=== PATIENT | female | born 1930 | race Asian ===

== ENCOUNTER 2017-10-30 18:22 | Inpatient (IN) | payer OTHER ==
[2017-10-30] MEDS: KETOROLAC 15 MG INJ IV (18:55)
[2017-10-30] MEDS: morphine 4 MG/ML VIAL IV (18:55)
[2017-10-30] MEDS: ONDANSETRON 4 MG INJ IV ×2 (18:55→21:03)
[2017-10-30] MEDS: LACTATED RINGER'S 1,000 ML IV (18:56)
[2017-10-30 19:19] LABS: ADD MAN DIFF? NO
[2017-10-30 19:24] LABS: BASOPHILS % 0.6 % (0.0-2.0); EOSINOPHILS % 0.3 % (0.0-7.0); HEMATOCRIT 34.9 % (37.0-47.0); HEMOGLOBIN 11.5 g/dl (12.0-16.0); LYMPHOCYTES # 1.6 10^3/ul (0.8-2.9); LYMPHOCYTES % 22.6 % (15.0-51.0); MEAN CORPUSCULAR HEMOGLOBIN 32.1 pg (29.0-33.0); MEAN CORPUSCULAR VOLUME 97.5 fl (82.0-101.0); MEAN PLATELET VOLUME 9.7 fl (7.4-10.4); MONOCYTE # 0.4 10^3/ul (0.3-0.9); MONOCYTES % 5.6 % (0.0-11.0); NEUTROPHIL # 4.9 10^3/ul (1.6-7.5); NEUTROPHILS % 70.8 % (39.0-77.0); PLATELET COUNT 244 10^3/UL (140-415); RED BLOOD COUNT 3.58 10^6/ul (4.20-5.40)
[2017-10-30 19:42] LABS: ALANINE AMINOTRANSFERASE 17 IU/L (13-69); ALBUMIN 4.3 g/dl (3.3-4.9); ALBUMIN/GLOBULIN RATIO 1.26; ALKALINE PHOSPHATASE 83 IU/L (42-121); ANION GAP 15 (8-16); ASPARTATE AMINO TRANSFERASE 31 IU/L (15-46); BILIRUBIN,INDIRECT 0.2 mg/dl (0-1.1); BILIRUBIN,TOTAL 0.2 mg/dl (0.2-1.3); BLOOD UREA NITROGEN 18 mg/dl (7-20); CALCIUM 9.7 mg/dl (8.4-10.2); CARBON DIOXIDE 25 mmol/L (21-31); CHLORIDE 105 mmol/L (97-110); GLUCOSE 130 mg/dl (70-220); LIPASE 1719 U/L (23-300); SODIUM 141 mmol/L (135-144); TOTAL PROTEIN 7.7 g/dl (6.1-8.1)
[2017-10-30 19:44] LABS: INR 0.84; PROTIME 11.6 Sec (11.9-14.9); PT RATIO 0.9
[2017-10-30 19:45] LABS: PARTIAL THROMBOPLASTIN TIME 28.7 Sec (25.0-35.0)
[2017-10-30 19:53] LABS: TROPONIN-I < 0.012 ng/ml (0.000-0.120)
[2017-10-30] MEDS: HYDROmorphONE 0.5 MG/0.5 ML SYG IV (21:03)
[2017-10-30] MEDS ORDERED: HYDROCODONE/APAP (5/325) TAB PO (21:30)
[2017-10-30] MEDS ORDERED: ACETAMINOPHEN 325 MG TAB PO (21:30)
[2017-10-30] MEDS ORDERED: ACETAMINOPHEN 650 MG SUPP PR (21:30)
[2017-10-30] MEDS ORDERED: BISACODYL (EC) 5 MG TAB PO (21:30)
[2017-10-30] MEDS ORDERED: morphine 2 MG INJ IV (21:30)
[2017-10-30] MEDS ORDERED: BISACODYL 10 MG SUPP PR (21:30)
[2017-10-30] MEDS ORDERED: NACL 0.9% 3 ML SYG IV (21:30)
[2017-10-30] MEDS: DOCUSATE SODIUM 100 MG CAP PO (21:30)
[2017-10-30] MEDS ORDERED: ONDANSETRON 4 MG INJ IV (21:30)
[2017-10-30] MEDS: SOD CHLORIDE 0.9% 1,000 ML IV (22:37)
[2017-10-31 05:04] LABS: ADD MAN DIFF? NO
[2017-10-31 05:18] LABS: WHITE BLOOD COUNT 7.7 10^3/ul (4.8-10.8)
[2017-10-31 05:18] LABS: BASOPHILS % 0.5 % (0.0-2.0); EOSINOPHILS % 0.3 % (0.0-7.0); HEMATOCRIT 30.2 % (37.0-47.0); HEMOGLOBIN 9.9 g/dl (12.0-16.0); LYMPHOCYTES % 25.3 % (15.0-51.0); MEAN CORPUSCULAR HEMOGLOBIN 31.8 pg (29.0-33.0); MEAN CORPUSCULAR HGB CONC 32.8 g/dl (32.0-37.0); MEAN CORPUSCULAR VOLUME 97.1 fl (82.0-101.0); MEAN PLATELET VOLUME 10.7 fl (7.4-10.4); MONOCYTE # 0.6 10^3/ul (0.3-0.9); MONOCYTES % 7.5 % (0.0-11.0); NEUTROPHIL # 5.1 10^3/ul (1.6-7.5); NEUTROPHILS % 66.1 % (39.0-77.0); PLATELET COUNT 225 10^3/UL (140-415); RED BLOOD COUNT 3.11 10^6/ul (4.20-5.40); RED CELL DISTRIBUTION WIDTH 13.2 % (11.5-14.5)
[2017-10-31 05:39] LABS: ANION GAP 9 (8-16); BLOOD UREA NITROGEN 13 mg/dl (7-20); CALCIUM 8.8 mg/dl (8.4-10.2); CARBON DIOXIDE 30 mmol/L (21-31); CHLORIDE 105 mmol/L (97-110); CREATININE 0.56 mg/dl (0.44-1.00); GLUCOSE 103 mg/dl (70-220); MAGNESIUM 2.1 mg/dl (1.7-2.5); PHOSPHORUS 3.4 mg/dl (2.5-4.9); POTASSIUM 3.8 mmol/L (3.5-5.1); SODIUM 140 mmol/L (135-144)
[2017-10-31] MEDS: PANTOPRAZOLE 40 MG INJ IV (05:39)
[2017-10-31] MEDS ORDERED: DEXAMETHASONE 4 MG/ML 1 ML INJ (07:00)
[2017-10-31] MEDS ORDERED: ONDANSETRON 4 MG INJ (07:00)
[2017-10-31] MEDS: SOD CHLORIDE 0.9% 1,000 ML IV ×4 (07:29→23:37)
[2017-10-31] MEDS: DOCUSATE SODIUM 100 MG CAP PO ×2 (08:46→20:09)
[2017-10-31] MEDS ORDERED: FENTAnyl 50 MCG/ML VIAL IV ×2 (09:30)
[2017-10-31] MEDS ORDERED: hydrALAzine 20 MG INJ IV ×2 (09:30→10:00)
[2017-10-31] MEDS ORDERED: HYDROmorphONE 1 MG/5 ML IV SYRINGE IV ×3 (09:30)
[2017-10-31] MEDS ORDERED: ONDANSETRON 4 MG INJ IV (09:30)
[2017-10-31] MEDS ORDERED: MEPERIDINE 25 MG INJ IV (09:30)
[2017-10-31] MEDS ORDERED: IPRATROPIUM (NEB) 0.5 MG/2.5 ML AMP HHN (09:30)
[2017-10-31] MEDS ORDERED: DIPHENHYDRAMINE 50 MG INJ IV (09:30)
[2017-10-31] MEDS ORDERED: LABETALOL HCL 20MG INJ IV (09:30)
[2017-10-31] MEDS ORDERED: FENTAnyl 50 MCG/ML VIAL (10:25)
[2017-10-31] MEDS ORDERED: MIDAZOLAM 1 MG/ML 2 ML INJ (10:26)
[2017-10-31] MEDS ORDERED: LIDOCAINE 2% (SDV) 5 ML INJ ×2 (10:27→11:09)
[2017-10-31] MEDS ORDERED: PROPOFOL 20 ML (10:27)
[2017-10-31] MEDS ORDERED: METOCLOPRAMIDE 10 MG INJ (10:27)
[2017-10-31] MEDS ORDERED: BUPIVACAINE 0.75%/DEXT (SPINAL) 2 ML INJ (10:58)
[2017-10-31] MEDS ORDERED: EPINEPHrine 1 MG INJ (10:59)
[2017-10-31] MEDS ORDERED: morphine SULFATE/PF (10 MG/10 ML) INJ (10:59)
[2017-10-31] MEDS ORDERED: NALOXONE (0.4 MG/ML) INJ IV (11:00)
[2017-10-31] MEDS ORDERED: CEFAZOLIN 1 GM INJ (11:09)
[2017-10-31] MEDS ORDERED: ETOMIDATE 20 MG INJ (11:09)
[2017-10-31] MEDS ORDERED: POLYMYXIN/BACITRACIN 1L IRRIG (12:33)
[2017-10-31] MEDS ORDERED: HYDROCODONE/APAP (5/325) TAB PO (14:00)
[2017-10-31 14:26] LABS: ADD MAN DIFF? NO
[2017-10-31 14:27] LABS: BASOPHILS % 0.4 % (0.0-2.0); EOSINOPHILS % 0.2 % (0.0-7.0); HEMATOCRIT 30.1 % (37.0-47.0); HEMOGLOBIN 9.9 g/dl (12.0-16.0); LYMPHOCYTES % 20.2 % (15.0-51.0); MEAN CORPUSCULAR HEMOGLOBIN 32.6 pg (29.0-33.0); MEAN CORPUSCULAR HGB CONC 32.9 g/dl (32.0-37.0); MEAN PLATELET VOLUME 9.5 fl (7.4-10.4); MONOCYTE # 0.7 10^3/ul (0.3-0.9); NEUTROPHIL # 7.2 10^3/ul (1.6-7.5); NEUTROPHILS % 71.9 % (39.0-77.0); PLATELET COUNT 199 10^3/UL (140-415); RED BLOOD COUNT 3.04 10^6/ul (4.20-5.40); RED CELL DISTRIBUTION WIDTH 13.2 % (11.5-14.5)
[2017-10-31] MEDS ORDERED: CEFAZOLIN 1 GM/50 ML (PMX) 50 ML IVPB (14:30)
[2017-10-31 14:47] LABS: ANION GAP 8 (8-16); BLOOD UREA NITROGEN 10 mg/dl (7-20); CALCIUM 8.3 mg/dl (8.4-10.2); CARBON DIOXIDE 27 mmol/L (21-31); CHLORIDE 108 mmol/L (97-110); CREATININE 0.65 mg/dl (0.44-1.00); POTASSIUM 3.5 mmol/L (3.5-5.1); SODIUM 139 mmol/L (135-144)
[2017-10-31 14:49] LABS: GLUCOSE 140 mg/dl (70-220)
[2017-10-31] MEDS: CEFAZOLIN 1 GM/50 ML (PMX) 50 ML IVPB (17:52)
[2017-11-01] MEDS: SOD CHLORIDE 0.9% 1,000 ML IV ×5 (04:05→23:29)
[2017-11-01 05:12] LABS: ADD MAN DIFF? NO
[2017-11-01 05:30] LABS: WHITE BLOOD COUNT 7.8 10^3/ul (4.8-10.8)
[2017-11-01 05:30] LABS: HEMATOCRIT 30.4 % (37.0-47.0); HEMOGLOBIN 10.1 g/dl (12.0-16.0); LYMPHOCYTES # 0.7 10^3/ul (0.8-2.9); LYMPHOCYTES % 8.4 % (15.0-51.0); MEAN CORPUSCULAR HEMOGLOBIN 32.6 pg (29.0-33.0); MEAN CORPUSCULAR HGB CONC 33.2 g/dl (32.0-37.0); MEAN CORPUSCULAR VOLUME 98.1 fl (82.0-101.0); MEAN PLATELET VOLUME 10.7 fl (7.4-10.4); MONOCYTE # 0.5 10^3/ul (0.3-0.9); MONOCYTES % 6.3 % (0.0-11.0); NEUTROPHIL # 6.7 10^3/ul (1.6-7.5); PLATELET COUNT 232 10^3/UL (140-415); RED CELL DISTRIBUTION WIDTH 13.5 % (11.5-14.5)
[2017-11-01 05:52] LABS: ANION GAP 12 (8-16); BLOOD UREA NITROGEN 9 mg/dl (7-20); CALCIUM 8.2 mg/dl (8.4-10.2); CARBON DIOXIDE 26 mmol/L (21-31); CHLORIDE 108 mmol/L (97-110); CREATININE 0.58 mg/dl (0.44-1.00); GLUCOSE 159 mg/dl (70-220); POTASSIUM 3.9 mmol/L (3.5-5.1); SODIUM 142 mmol/L (135-144)
[2017-11-01 05:53] LABS: PHOSPHORUS 2.6 mg/dl (2.5-4.9)
[2017-11-01] MEDS: CEFAZOLIN 1 GM/50 ML (PMX) 50 ML IVPB ×2 (05:59→17:45)
[2017-11-01] MEDS: PANTOPRAZOLE 40 MG INJ IV (06:00)
[2017-11-01] MEDS: DOCUSATE SODIUM 100 MG CAP PO ×2 (09:23→21:54)
[2017-11-01] MEDS: ENOXAPARIN 40 MG/0.4 ML SYG SC (09:30)
[2017-11-01] MEDS: HYDROCODONE/APAP (5/325) TAB PO (13:59)
[2017-11-01] MEDS: ATORVASTATIN 10 MG TAB PO (21:54)
[2017-11-02] MEDS: LORAZEPAM 2 MG INJ IV (00:01)
[2017-11-02] MEDS: SOD CHLORIDE 0.9% 1,000 ML IV ×3 (02:08→15:37)
[2017-11-02] MEDS: morphine 2 MG INJ IV (03:34)
[2017-11-02] MEDS: DOCUSATE SODIUM 100 MG CAP PO (09:09)
[2017-11-02] MEDS: ENOXAPARIN 40 MG/0.4 ML SYG SC (09:11)
[2017-11-02 15:43] LABS: ADD UMIC YES; UR ASCORBIC ACID NEGATIVE (NEGATIVE); UR BILIRUBIN (Dip) NEGATIVE (NEGATIVE); UR BLOOD (Dip) NEGATIVE (NEGATIVE); UR CLARITY CLEAR (CLEAR); UR COLOR STRAW (YELLOW); UR GLUCOSE (Dip) NEGATIVE (NEGATIVE); UR KETONES (Dip) NEGATIVE (NEGATIVE); UR LEUKOCYTE ESTERASE (Dip) TRACE Leu/ul (NEGATIVE); UR NITRITE (Dip) NEGATIVE (NEGATIVE); UR RBC 3 /HPF (0-5); UR TOTAL PROTEIN (Dip) NEGATIVE (NEGATIVE); UR UROBILINOGEN (Dip) NEGATIVE (NEGATIVE); UR WBC 0 /HPF (0-5)
[2017-11-02] MEDS: HYDROCODONE/APAP (5/325) TAB PO (16:42)
== END 2017-11-02 17:50 | DRG 482 ==
LOC: E/R 18:22 → MS1 20:19
PROC: 0QS906Z Reposition Left Femoral Shaft with Intramedullary Internal Fixation Device, Open Approach (ICD-10-PCS; principal; 2017-10-31 10:58)
DX: S72.342A Displaced spiral fracture of shaft of left femur, initial encounter for closed fracture (principal); I10 Essential (primary) hypertension; E78.5 Hyperlipidemia, unspecified; M81.0 Age-related osteoporosis without current pathological fracture; E86.0 Dehydration; W01.0XXA Fall on same level from slipping, tripping and stumbling without subsequent striking against object, initial encounter; Y93.H2 Activity, gardening and landscaping; Y92.017 Garden or yard in single-family (private) house as the place of occurrence of the external cause; Y99.8 Other external cause status
CPT/HCPCS: 36415; 71045; 72170; 73530; 73550; 73562; 80048; 80053; 81001; 83690; 83735; 84100; 84484; 85025; 85610; 85730; 93005; 96374; 96375; 97110; 97116; 97162; 97530; 99285-25